=== PATIENT | female | born 1970 | race African-American/Black ===

== ENCOUNTER 2020-04-07 01:43 | Emergency (ER) | payer MEDICAID ==
[~2020-04-07] VITALS: Ht 162.6 cm; Wt 103.4 kg
[~2020-04-07 01:43] MED LIST: CEPHALEXIN500 MG ORAL; CLONIDINE0.1 MG PO; COREG25 MG PO; CYMBALTA30 MG ORAL; GLIPIZIDE5 MG ORAL; KEFLEX500 MG ORAL; LEVOTHYROXINE100 MCG ORAL; LISINOPRIL40 MG PO; NORCO 5-325 TA1 EACH ORAL
[2020-04-07] MEDS ORDERED: ABILIFY10 MG ORAL (01:52)
[2020-04-07] MEDS ORDERED: METFORMIN HCL1000 M1 ORAL (01:52)
[2020-04-07] MEDS ORDERED: HUMALOG100 UNIT/3 SUBQ (01:52)
--- NOTE | 2020-04-07 01:52 | NUR ---
ED Nurse Note: Pt c/o 10/10 pain in L shoulder and decreased ROM for 3 weeks after popping it while trying to open her door. Pt is A&OX4, VSS. No notable swelling
--- NOTE | 2020-04-07 02:07 | NUR ---
ED Nurse Note: xray at bedside
[2020-04-07] MEDS ORDERED: HYDROcodone/Acetamin 5/325 tab ORAL ONE (02:30)
[2020-04-07] MEDS ORDERED: NORCO 10-325 T1 EACH ORAL (02:33)
[2020-04-07] MEDS ORDERED: VOLTAREN100 G1 TP (02:33)
--- NOTE | 2020-04-07 02:37 | Diagnostic Imaging Report ---
EXAM: XR Left Shoulder Complete, 2 or More Views CLINICAL HISTORY: PAIN TECHNIQUE: Two or more views of the left shoulder. COMPARISON: No relevant prior studies available. FINDINGS: Bones/joints: Partly seen cervical spine stabilization hardware. No acute fracture. No dislocation. Soft tissues: Unremarkable. IMPRESSION: 1. No acute traumatic injury. 2. No acute abnormality definitively identified to account for patient presentation.
[2020-04-07 02:40] VITALS: BP 155/99
--- NOTE | 2020-04-07 02:40 | NUR ---
ER DISCHARGE NOTE: Patient is cleared to be discharged per ERMD, pt is aox4, on room air, with stable vital signs. pt was given dc and prescription instructions, pt was able to verbalize understanding, pt id band removed. pt is able to ambulate with steady gait. pt took all belongings.
--- NOTE | 2020-04-21 14:33 | Emergency Room Report ---
History of Present Illness General Chief Complaint: Upper Extremity Injury Source: Patient Present Illness HPI Patient is a 49-year-old female who presents for increased left-sided shoulder pain. Onset of symptoms approximately 3 weeks prior to arrival. States that she injured her shoulder after having been moving her car door. Reports of increased difficulty with movement. Denies any recent trauma. Had no prior injuries in the past. Allergies: Coded Allergies: No Known Allergies (Unverified , 03/23/12) COVID-19 Screening Contact w/high risk pt: No Experienced COVID-19 symptoms?: No COVID-19 Testing performed TUBE MAN: No Patient History Last Menstrual Period: n/a Reviewed Nursing Documentation: PMH: Agreed; PSxH: Agreed Nursing Documentation-PMH Past Medical History: No History, Except For Hx Hypertension: Yes Hx Pacemaker: No Hx Asthma: No Hx COPD: No Hx Diabetes: Yes Hx Cancer: No Hx Gastrointestinal Problems: No Hx Dialysis: No Hx Neurological Problems: No Hx Cerebrovascular Accident: No - Patient has chronic lower back pain Hx Seizures: No - HERNIATED DISC Review of Systems All Other Systems: negative except mentioned in HPI Physical Exam General Appearance: well appearing, no apparent distress, alert, GCS 15, non- toxic Head: normocephalic, atraumatic ENT: hearing grossly normal, normal voice Neck: full range of motion, supple Respiratory: normal inspection, lungs clear, no respiratory distress, speaking full sentences Cardiovascular #1: normal inspection, regular rate, rhythm Gastrointestinal: normal inspection, non tender, soft Musculoskeletal: normal inspection, digits/nails normal, decreased range of mation - Left shoulder with decreased abduction normal flexion at the elbow normal hand function, normal pulses perfusion is good Neurologic: alert, motor strength/tone normal, fabricator foam rubber III-XII nml as tested, oriented x3, normal gait Psychiatric: mood/affect normal Skin: no rash Medical Decision Making Diagnostic Impression: Primary Impression: Shoulder pain, left ER Course Presented for left shoulder pain. Differential diagnosis include was not limited to dislocation, contusion, arthritis, rotator cuff injury among others. Extremity was ordered to patient's recent increased pain to her shoulder. There is no erythema to suggest a septic joint. Patient appears to have limited range of motion in abduction. Some tenderness to the supraspinatus tendon. X- ray imaging showed no evidence of acute fracture or dislocation. Patient was advised to follow-up with her physician for recheck and that she may need MRI if symptoms persist. She is advised to return if worse. This medical record is generated with [employer] technical clerk software. There may be some technical clerk discrepancies related to use of this software Status: improved Disposition: HOME, SELF-CARE Condition: Stable Scripts Diclofenac Sodium (VOLTAREN) 100 Gm Gel..gram. 5 GM TP TWICE A DAY, #100 GM Prov: Selwyn Lozano MD 04/07/20 Hydrocodone Bit/Acetaminophen 10-325* (NORCO 10-325*) 1 Each Tablet 1 TAB ORAL Q4H PRN for For Pain, #10 TAB 0 Refills PRN PAIN Prov: Selwyn Lozano MD 04/07/20 Patient Instructions: Shoulder Pain Additional Instructions: Follow up with your doctor for recheck. Return if worse. Selwyn Lozano MD Apr 21, 2020 14:33
== END 2020-04-07 02:40 | disposition home or self-care (01) ==
LOC: EMR 02:06
DX: M25.512 Pain in left shoulder (principal); I10 Essential (primary) hypertension; E11.9 Type 2 diabetes mellitus without complications
CPT/HCPCS: 73030; Z7502; 99283